=== PATIENT | female | born 1955 | race American Indian/Alaskan Native ===

== ENCOUNTER 2017-02-08 18:52 | Emergency (ER) | payer OTHER ==
[2017-02-09] MEDS ORDERED: TORADOL IM ONE (00:06)
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
[2017-02-09 02:11] VITALS: BP 166/93
== END 2017-02-09 02:09 | disposition home or self-care (01) ==
LOC: ED 18:52
DX: S13.4XXA Sprain of ligaments of cervical spine, initial encounter (principal); V49.49XA Driver injured in collision with other motor vehicles in traffic accident, initial encounter; Y93.89 Activity, other specified; Y99.8 Other external cause status; Y92.488 Other paved roadways as the place of occurrence of the external cause
CPT/HCPCS: 70450; 72100; 72125; 96372; 99284; J1885